=== PATIENT | male | born 1985 | race Caucasian/White ===

== ENCOUNTER 2017-02-22 21:07 | Emergency (ER) | payer BC ==
[~2017-02-22] VITALS: Ht 180.3 cm; Wt 72.6 kg
[2017-02-22 21:48] VITALS: BP 107/66
[2017-02-22] MEDS ORDERED: predniSONE 20 MG TABLET PO ONE (22:30)
[2017-02-22] MEDS ORDERED: cefTRIAXone IM 1 GM VIAL IM ONE (22:30)
[2017-02-22] MEDS ORDERED: LIDOCAINE 1% PF 2 ML VIAL. INJ ONE (22:30)
[2017-02-22] MEDS ORDERED: AMOX1TAB61 PO (22:54)
[2017-02-22] MEDS ORDERED: METH4TAB2 PO (22:54)
[2017-02-22] MEDS ORDERED: BENZ100C PO (22:54)
--- NOTE | 2017-02-22 22:55 | PHYS DOC ---
Past Medical History Past Medical History: Other Additional Past Medical Histor: SEIZURES (CHILDHOOD AGE 2-8) Past Surgical History: No Surgical History Alcohol Use: Occasionally Drug Use: None Adult General Chief Complaint Chief Complaint: COUGH HPI HPI Patient is a 31 year old male who presents complaining over cough and fever or 101.8 for one day, patient's also complaining of nasal congestion. Patient states he has body aches. Most of the talking is done by the who states she had similar symptoms and was given Rocephin Augmentin and medrol dose pack her she feels better. She states their daughter has similar symptoms. Review of Systems Review of Systems Constitutional: fever and body aches Eyes: Denies change in visual acuity, redness, or eye pain [] HENT: nasal congestion Respiratory: cough denies shortness of breath [] Cardiovascular: No additional information not addressed in HPI [] GI: Denies abdominal pain, nausea, vomiting, bloody stools or diarrhea [] : Denies dysuria or hematuria [] Musculoskeletal: Denies back pain or joint pain [] Integument: Denies rash or skin lesions [] Neurologic: Denies headache, focal weakness or sensory changes [] Endocrine: Denies polyuria or polydipsia [] All other systems were reviewed and found to be within normal limits, except as documented in this note. Current Medications Current Medications Current Medications Medications (Trade) Dose Ordered Sig/Rock Start Time Stop Time Status Last Admin Dose Admin Ceftriaxone Sodium (Rocephin Im) 1 gm 1X ONCE 02/22/17 22:30 02/22/17 22:31 DC 02/22/17 22:25 1 GM Lidocaine HCl (Xylocaine-Mpf 1% Vial) 2 ml 1X ONCE 02/22/17 22:30 02/22/17 22:31 DC 02/22/17 22:25 2 ML Prednisone (Prednisone) 60 mg 1X ONCE 02/22/17 22:30 02/22/17 22:31 DC 02/22/17 22:25 60 MG Allergies Allergies Allergies Coded Allergies Type Severity Reaction Last Updated Verified No Known Drug Allergies 02/22/17 No Physical Exam Physical Exam Constitutional: Well developed, well nourished, no acute distress, non-toxic appearance. [] HENT: Normocephalic, atraumatic, bilateral external ears normal, oropharynx moist, no oral exudates, nose normal. [] Eyes: PERRLA, EOMI, conjunctiva normal, no discharge. [] Neck: Normal range of motion, no tenderness, supple, no stridor. [] Cardiovascular:Heart rate regular rhythm, no murmur [] Lungs & Thorax: Bilateral breath sounds clear to auscultation [] Abdomen: Bowel sounds normal, soft, no tenderness, no masses, no pulsatile masses. [] Skin: Warm, dry, no erythema, no rash. [] Back: No tenderness, no CVA tenderness. [] Extremities: No tenderness, no cyanosis, no clubbing, ROM intact, no edema. [] Neurologic: Alert and oriented X 3, normal motor function, normal sensory function, no focal deficits noted. [] Psychologic: Affect normal, judgement normal, mood normal. [] Current Patient Data Vital Signs Vital Signs Date Time Temp Pulse Resp B/P (MAP) Pulse Ox O2 Delivery O2 Flow Rate FiO2 02/22/17 21:48 99.7 100 20 99 Room Air 99.7 EKG EKG [] Radiology/Procedures Radiology/Procedures [] Course & Med Decision Making Course & Med Decision Making Pertinent Labs and Imaging studies reviewed. (See chart for details) Patient is in the ED with cough and nasal congestion and a fever. Temperature in the ED is 99.7. He works as an EMT. Please see history of present illness. He was given Rocephin in the ED. He was discharged with a give Augmentin, Medrol Dosepak. Instructed to take Tylenol Motrin for pain or fever. Recommended resting. Follow-up with primary care doctor in one week. Dragon Disclaimer Dragon Disclaimer This electronic medical record was generated, in whole or in part, using a voice recognition dictation system. Departure Departure Impression: Primary Impression: Acute bronchitis Additional Impressions: Acute sinusitis Fever Disposition: 01 HOME, SELF-CARE Condition: STABLE Referrals: JERRY VALADEZ DO (PCP) Follow-up with your doctor in the next 1-7 days Patient Instructions: Acute Bronchitis, Fever, Sinusitis Additional Instructions: You were seen with symptoms suspicious of bronchitis and possibly an early sinus infection. Take the prescribed medicines as ordered ensure you complete the antibiotics. Some of the symptoms you have could also be viral. The viral aspect will ran its own course. Push fluids. Rest. Contact your doctor tomorrow and set up a follow-up appointment. Take Tylenol every 4 hours and Motrin every 6 hours as needed for fever or pain. Push fluids especially Gatorade. Regular food will not test well when you are sick. Be patient with your body as it tries to heal up Scripts Amoxicillin/Potassium Clav (AUGMENTIN 875-125 TABLET) 1 Each Tablet 1 TAB PO BID, #20 TAB Prov: FRANSICO WILD APRN 02/22/17 Benzonatate (TESSALON PERLE) 100 Mg Capsule 1 CAP PO TID, #30 CAP Prov: FRANSICO WILD ASSISTANT [employer]INEER 02/22/17 Methylprednisolone (MEDROL) 4 Mg Tab.ds.pk 1 PKG PO UD, #1 PKG Prov: FRANSICO WILD APRN 02/22/17 Problem Qualifiers Primary Impression: Acute bronchitis Bronchitis organism: unspecified organism Qualified Codes: J20.9 - Acute bronchitis, unspecified Additional Impressions: Acute sinusitis Sinusitis location: unspecified location Recurrence: not specified as recurrent Qualified Codes: J01.90 - Acute sinusitis, unspecified Fever Fever type: unspecified Qualified Codes: R50.9 - Fever, unspecified FRANSICO WILD APRN Feb 22, 2017 22:55
== END 2017-02-22 23:00 | disposition home or self-care (01) ==
LOC: ER 21:07
DX: J20.9 Acute bronchitis, unspecified (principal); J01.90 Acute sinusitis, unspecified
CPT/HCPCS: 96372; 99284; J0696; J7512

== ENCOUNTER 2017-09-26 10:12 | Emergency (ER) | payer BC ==
[2017-09-26] MEDS: LIDOCAINE WITH 8.4% SOD BICARB 3 ML DISP.SYRIN. INJ (10:30)
[2017-09-26] MEDS ORDERED: LIDOCAINE WITH 8.4% SOD BICARB 3 ML DISP.SYRIN. (10:33)
[2017-09-26] MEDS: NEOMY/BACITR/POLYMYXIN OINT PACKET. TP ×2 (11:08→11:20)
== END 2017-09-26 11:24 | disposition home or self-care (01) ==
LOC: ER 11:24
DX: S61.411A Laceration without foreign body of right hand, initial encounter (principal); Z79.899 Other long term (current) drug therapy; W26.8XXA Contact with other sharp object(s), not elsewhere classified, initial encounter; Y93.89 Activity, other specified; Y92.89 Other specified places as the place of occurrence of the external cause; Y99.8 Other external cause status
CPT/HCPCS: 12001; 99283-25